=== PATIENT | female | born 1985 | race African-American/Black ===

== ENCOUNTER 2023-01-26 13:07 | Emergency (ER) | payer BC, MEDICAID ==
[~2023-01-26] VITALS: Ht 165.1 cm; Wt 82.0 kg
[2023-01-26 13:23] VITALS: BP 137/91; TEMP 98.5; O2SAT 100
[2023-01-26 14:32] LABS: BASOPHILS % 1.2 % (0.0-2.0); EOSINOPHILS % 0.5 % (0.0-5.0); HEMATOCRIT. 33.8 % (36.0-48.0); HEMOGLOBIN. 10.9 g/dL (12.0-16.0); LYMPHOCYTES % 23.2 % (20.0-50.0); MEAN CORPUSCULAR HEMOGLOBIN 26.5 pg (28.0-32.0); MEAN CORPUSCULAR HGB CONC 32.3 g/dL (31.0-37.0); MEAN CORPUSCULAR VOLUME 81.8 fL (81.0-99.0); MEAN PLATELET VOLUME 7.5 fl (7.4-10.4); MONOCYTES % 4.6 % (2.0-8.0); NEUTROPHILS % 70.5 % (40.0-76.0); PLATELET 300 x1000/uL (130-400); RED BLOOD CELL COUNT 4.13 mill/uL (4.2-5.4); RED CELL DISTRIBUTION WIDTH 21.2 % (11.6-14.6); WHITE BLOOD COUNT 14.1 x1000/uL (4.5-11.0)
[2023-01-26 14:35] LABS: CLARITY URINE CLEAR (CLEAR); COLOR URINE YELLOW (YELLOW); GLUCOSE URINE NEGATIVE (NEGATIVE); KETONES URINE NEGATIVE (NEGATIVE); LEUKOCYTE ESTERASE URINE TRACE (NEGATIVE); NITRITE URINE NEGATIVE (NEGATIVE); OCCULT BLOOD URINE NEGATIVE (NEGATIVE); PH URINE >=9.0 (4.5-8.0); PROTEIN URINE 1+ (NEGATIVE); SPECIFIC GRAVITY URINE 1.019 (1.005-1.030); UROBILINOGEN URINE 0.2 E.U./dL (0.2-1.0)
[2023-01-26 14:45] LABS: CHLORIDE 106 mEq/L (98-107); INDEX HEMOLYSI 1 (1-3); INDEX ICTERIC 1 (1-4); INDEX LIPEMIC 1 (1-3); SODIUM 139 mEq/L (136-145)
[2023-01-26 14:53] LABS: POTASSIUM 2.8 mEq/L (3.5-5.1)
[2023-01-26 14:55] LABS: ALANINE AMINOTRANSFERASE 32 IU/L (13-61); ALBUMIN 3.4 g/dL (3.4-5.0); ASPARTATE AMINOTRANSFERASE 50 IU/L (15-37); BILIRUBIN TOTAL 0.5 mg/dL (0.1-1.0); CALCIUM 8.4 mg/dL (8.5-10.1); CREATININE 0.6 mg/dL (0.6-1.3); GLUCOSE 110 mg/dL (70-105); PROTEIN TOTAL 7.7 g/dL (6.0-8.3); UREA NITROGEN BLOOD 8 mg/dL (7-21)
[2023-01-26 15:06] LABS: HCG SCREEN NEGATIVE
[2023-01-26] MEDS ORDERED: POTASSIUM CHLORIDE 20MEQ/PACKET PO ONE (15:15)
[2023-01-26 15:17] VITALS: PULSE 89; RESP 16
[2023-01-26 15:35] LABS: SQUAMOUS EPITHELIAL CELL URINE 2+ /lpf (RARE/1+)
[2023-01-26 15:37] LABS: RBC URINE 0-2 /hpf (0-2)
[2023-01-26 15:38] LABS: BACTERIA URINE 1+
[2023-01-26 16:21] LABS: CARBON DIOXIDE 23 mEq/L (21-32)
== END 2023-01-26 19:36 | disposition home or self-care (01) ==
LOC: ER 13:07
DX: R10.13 Epigastric pain (principal); R11.2 Nausea with vomiting, unspecified; E87.6 Hypokalemia; H40.9 Unspecified glaucoma; Z98.890 Other specified postprocedural states
CPT/HCPCS: 36415; 80053; 81003; 84703; 85025; 93005; 99284

== ENCOUNTER 2023-05-18 14:42 | Emergency (ER) | payer MEDICAID ==
[~2023-05-18] VITALS: Ht 160 cm; Wt 71.0 kg
[2023-05-18 15:07] VITALS: O2SAT 100
[2023-05-18 16:32] LABS: HEMATOCRIT. 35.1 % (36.0-48.0); HEMOGLOBIN. 11.8 g/dL (12.0-16.0); MEAN CORPUSCULAR HEMOGLOBIN 29.2 pg (28.0-32.0); MEAN CORPUSCULAR HGB CONC 33.5 g/dL (31.0-37.0); PLATELET 201 x1000/uL (130-400); RED BLOOD CELL COUNT 4.03 mill/uL (4.2-5.4); RED CELL DISTRIBUTION WIDTH 29.6 % (11.6-14.6); WHITE BLOOD COUNT 9.3 x1000/uL (4.5-11.0)
[2023-05-18 16:35] LABS: DIFFERENTIAL COMMENT 1
[2023-05-18 16:46] LABS: ALANINE AMINOTRANSFERASE 27 IU/L (10-49); ALBUMIN 3.7 g/dL (3.2-4.8); ASPARTATE AMINOTRANSFERASE 87 IU/L (<34); BILIRUBIN TOTAL 0.8 mg/dL (0.1-1.0); CALCIUM 8.2 mg/dL (8.7-10.4); CARBON DIOXIDE 30 mEq/L (21-32); CHLORIDE 100 mEq/L (98-107); CREATININE 0.6 mg/dL (0.6-1.0); GLUCOSE 110 mg/dL (70-105); INR 1.1; PROTEIN TOTAL 6.9 g/dL (6.0-8.3); SODIUM 141 mEq/L (136-145); UREA NITROGEN BLOOD 8 mg/dL (9-23)
[2023-05-18 16:49] LABS: POTASSIUM 2.6 mEq/L (3.5-5.1)
[2023-05-18 17:00] LABS: ANISOCYTOSIS 3+; PLATELET ESTIMATE NORMAL
[2023-05-18] MEDS: MAGNESIUM/ALUMINUM HYDROXIDE/SIMETHICONE 30ML UDC PO STA (18:21)
[2023-05-18] MEDS: POTASSIUM CHLORIDE 20MEQ TABLET SR PO ONE (18:22)
[2023-05-18] MEDS: MORPHINE SULFATE 10 MG/ML CPJ IM ONE (18:22)
[2023-05-18] MEDS: POTASSIUM CHLORIDE 20MEQ/PACKET PO ONE (18:51)
[2023-05-18] MEDS: KETOROLAC 60MG/2ML VIAL IM ONE (18:51)
[2023-05-18 20:03] VITALS: BP 116/76; PULSE 96; RESP 16; TEMP 98.7
== END 2023-05-18 20:05 | disposition home or self-care (01) ==
LOC: ER 14:42
DX: R10.13 Epigastric pain (principal); H40.9 Unspecified glaucoma; Z98.890 Other specified postprocedural states
CPT/HCPCS: 99285; 76705; 80053; 83690; 83735; 85025; 85610; 36415; 96372; J1885; J2270

== ENCOUNTER 2023-06-12 13:49 | Emergency (ER) | payer MEDICAID ==
[~2023-06-12] VITALS: Ht 167.6 cm; Wt 68.0 kg
[2023-06-12 13:58] VITALS: O2SAT 99
[2023-06-12] MEDS: PANTOPRAZOLE SODIUM 40 MG/VIAL IV STA (15:05)
[2023-06-12] MEDS: SODIUM CHLORIDE 0.9% 1,000 ML IV ONE (15:05)
[2023-06-12 15:12] LABS: BASOPHILS % 0.4 % (0.0-2.0); EOSINOPHILS % 0.2 % (0.0-5.0); HEMATOCRIT. 33.3 % (36.0-48.0); HEMOGLOBIN. 11.1 g/dL (12.0-16.0); LYMPHOCYTES % 8.1 % (20.0-50.0); MEAN CORPUSCULAR HGB CONC 33.4 g/dL (31.0-37.0); MEAN PLATELET VOLUME 7.8 fl (7.4-10.4); MONOCYTES % 2.8 % (2.0-8.0); NEUTROPHILS % 88.5 % (40.0-76.0); PLATELET 351 x1000/uL (130-400); RED BLOOD CELL COUNT 3.96 mill/uL (4.2-5.4); RED CELL DISTRIBUTION WIDTH 29.1 % (11.6-14.6); WHITE BLOOD COUNT 13.4 x1000/uL (4.5-11.0)
[2023-06-12 15:29] LABS: ADD RBC MORPHOLOGY YES; ALANINE AMINOTRANSFERASE 23 IU/L (10-49); ALBUMIN 3.8 g/dL (3.2-4.8); ASPARTATE AMINOTRANSFERASE 49 IU/L (<34); BILIRUBIN TOTAL 0.6 mg/dL (0.1-1.0); CALCIUM 8.1 mg/dL (8.7-10.4); CARBON DIOXIDE 23 mEq/L (21-32); CHLORIDE 108 mEq/L (98-107); CREATININE 0.7 mg/dL (0.6-1.0); DIFFERENTIAL COMMENT 1; ETHANOL BLOOD < 10 mg/dL (<10); GLUCOSE 104 mg/dL (70-105); PROTEIN TOTAL 6.5 g/dL (6.0-8.3); SODIUM 141 mEq/L (136-145); UREA NITROGEN BLOOD 7 mg/dL (9-23)
[2023-06-12] MEDS: DIAZEPAM 2 MG TABLET PO ONE (15:30)
[2023-06-12 15:32] LABS: HCG SCREEN NEGATIVE
[2023-06-12 16:04] LABS: ANISOCYTOSIS 3+; PLATELET ESTIMATE NORMAL
[2023-06-12] MEDS: ACETAMINOPHEN 325MG TABLET PO ONE (16:22)
[2023-06-12] MEDS: KETOROLAC 15MG/ML VIAL IV ONE (16:22)
[2023-06-12] MEDS: MAGNESIUM/ALUMINUM HYDROXIDE/SIMETHICONE 30ML UDC PO ONE (16:22)
[2023-06-12] MEDS ORDERED: DIAZEPAM 5 MG/ML 2ML CPJ IV ONE (16:45)
[2023-06-12 19:50] LABS: CLARITY URINE CLOUDY (CLEAR); COLOR URINE DARK YELLOW (YELLOW); GLUCOSE URINE NEGATIVE (NEGATIVE); KETONES URINE 1+ (NEGATIVE); LEUKOCYTE ESTERASE URINE TRACE (NEGATIVE); NITRITE URINE NEGATIVE (NEGATIVE); OCCULT BLOOD URINE NEGATIVE (NEGATIVE); PH URINE 5.5 (4.5-8.0); PROTEIN URINE TRACE (NEGATIVE); SPECIFIC GRAVITY URINE 1.036 (1.005-1.030)
[2023-06-12 20:03] LABS: *AMPHETAMINES SCREEN URINE NEGATIVE (NEGATIVE); *BARBITURATES SCREEN URINE NEGATIVE (NEGATIVE); *BENZODIAZEPINES SCREEN URINE PRESUMPTIVE POSITIVE (NEGATIVE); *COCAINE SCREEN URINE NEGATIVE (NEGATIVE); CANNABINOID URINE SCREEN PRESUMPTIVE POSITIVE (NEGATIVE); ECSTASY MDMA SCREEN URINE NEGATIVE (NEGATIVE); METHADONE URINE SCREEN Neg (NEGATIVE); OPIATES URINE SCREEN NEGATIVE (NEGATIVE); PHENCYCLIDINE URINE SCREEN NEGATIVE (NEGATIVE)
[2023-06-12 20:05] LABS: BACTERIA URINE 1+; RBC URINE 0-2 /hpf (0-2); SQUAMOUS EPITHELIAL CELL URINE 2+ /lpf (RARE/1+)
[2023-06-12] MEDS ORDERED: OMEP20TA23 MT (20:06)
[2023-06-12 20:36] VITALS: BP 127/75; PULSE 92; RESP 17; TEMP 98.1
== END 2023-06-12 20:20 | disposition home or self-care (01) ==
LOC: ER 13:49
DX: K29.70 Gastritis, unspecified, without bleeding (principal); F41.9 Anxiety disorder, unspecified; F10.10 Alcohol abuse, uncomplicated; F12.10 Cannabis abuse, uncomplicated; H40.9 Unspecified glaucoma; Z98.890 Other specified postprocedural states; Z87.891 Personal history of nicotine dependence
CPT/HCPCS: 80053; 80305; 81003; 80320; 84703; 83690; 85025; 85610; 36415; 71045; 93005; 96361; 96374; 96375; 99285; J1885; C9113; J7030; Z7610 ×2; G0480

== ENCOUNTER 2023-07-13 08:29 | Emergency (ER) | payer MEDICAID ==
[~2023-07-13] VITALS: Ht 170.2 cm; Wt 73.0 kg
[~2023-07-13 08:29] MED LIST: OMEP20TA23 MT
[2023-07-13 08:32] VITALS: O2SAT 100
[2023-07-13] MEDS: KETOROLAC 30MG/ML VIAL IV STA (08:51)
[2023-07-13 09:01] LABS: HCG SCREEN NEGATIVE
[2023-07-13 09:08] LABS: ALANINE AMINOTRANSFERASE 14 IU/L (10-49); ALBUMIN 3.9 g/dL (3.2-4.8); ASPARTATE AMINOTRANSFERASE 41 IU/L (<34); BILIRUBIN TOTAL 0.6 mg/dL (0.1-1.0); CALCIUM 8.4 mg/dL (8.7-10.4); CARBON DIOXIDE 28 mEq/L (21-32); CHLORIDE 100 mEq/L (98-107); CREATININE 0.6 mg/dL (0.6-1.0); GLUCOSE 108 mg/dL (70-105); POTASSIUM 2.9 mEq/L (3.5-5.1); PROTEIN TOTAL 7.1 g/dL (6.0-8.3); SODIUM 137 mEq/L (136-145)
[2023-07-13 09:10] LABS: UREA NITROGEN BLOOD < 5 mg/dL (9-23)
[2023-07-13 09:28] LABS: BASOPHILS % 0.7 % (0.0-2.0); EOSINOPHILS % 1.6 % (0.0-5.0); HEMATOCRIT. 35.4 % (36.0-48.0); HEMOGLOBIN. 11.7 g/dL (12.0-16.0); LYMPHOCYTES % 19.1 % (20.0-50.0); MEAN CORPUSCULAR HEMOGLOBIN 27.7 pg (28.0-32.0); MEAN CORPUSCULAR VOLUME 83.8 fL (81.0-99.0); MEAN PLATELET VOLUME 8.3 fl (7.4-10.4); MONOCYTES % 5.4 % (2.0-8.0); NEUTROPHILS % 73.2 % (40.0-76.0); PLATELET 240 x1000/uL (130-400); RED BLOOD CELL COUNT 4.22 mill/uL (4.2-5.4); WHITE BLOOD COUNT 7.2 x1000/uL (4.5-11.0)
[2023-07-13 09:29] LABS: PROTHROMBIN TIME 10.9 sec (9.6-11.0)
[2023-07-13 09:44] LABS: ADD RBC MORPHOLOGY YES; DIFFERENTIAL COMMENT 1
[2023-07-13] MEDS: MAGNESIUM/ALUMINUM HYDROXIDE/SIMETHICONE 30ML UDC PO STA (10:47)
[2023-07-13] MEDS: POTASSIUM CHLORIDE 20MEQ/PACKET PO ONE (10:47)
[2023-07-13 11:14] VITALS: BP 111/70; PULSE 67; RESP 16; TEMP 98.6
[2023-07-13] MEDS ORDERED: TOPUD PO (11:16)
[2023-07-13 15:59] LABS: ANISOCYTOSIS 2+; PLATELET ESTIMATE NORMAL
== END 2023-07-13 11:30 | disposition home or self-care (01) ==
LOC: ER 08:29
DX: R10.13 Epigastric pain (principal); Z98.890 Other specified postprocedural states; Z87.19 Personal history of other diseases of the digestive system
CPT/HCPCS: 99283; 80053; 84703; 83690; 85025; 85610; 36415; J1885

== ENCOUNTER 2023-08-14 05:10 | Emergency (ER) | payer MEDICAID ==
[~2023-08-14] VITALS: Ht 172.7 cm; Wt 84.0 kg
[~2023-08-14 05:10] MED LIST changes: +TOPUD PO
[2023-08-14 05:12] VITALS: O2SAT 98
[2023-08-14 05:51] LABS: BASOPHILS % 0.5 % (0.0-2.0); EOSINOPHILS % 1.2 % (0.0-5.0); HEMATOCRIT. 34.5 % (36.0-48.0); HEMOGLOBIN. 11.8 g/dL (12.0-16.0); LYMPHOCYTES % 29.5 % (20.0-50.0); MEAN CORPUSCULAR HEMOGLOBIN 28.5 pg (28.0-32.0); MEAN CORPUSCULAR HGB CONC 34.1 g/dL (31.0-37.0); MEAN CORPUSCULAR VOLUME 83.5 fL (81.0-99.0); MEAN PLATELET VOLUME 8.1 fl (7.4-10.4); MONOCYTES % 7.7 % (2.0-8.0); NEUTROPHILS % 61.1 % (40.0-76.0); PLATELET 205 x1000/uL (130-400); RED BLOOD CELL COUNT 4.13 mill/uL (4.2-5.4); RED CELL DISTRIBUTION WIDTH 26.7 % (11.6-14.6); WHITE BLOOD COUNT 6.7 x1000/uL (4.5-11.0)
[2023-08-14] MEDS: KETOROLAC 30MG/ML VIAL IV STA (05:59)
[2023-08-14 06:00] LABS: PROTHROMBIN TIME 11.1 sec (9.6-11.0)
[2023-08-14] MEDS: ONDANSETRON HCL 4MG/2ML INJ IV STA (06:00)
[2023-08-14] MEDS: DICYCLOMINE 10 MG/5 ML ORAL SYR PO STA (06:00)
[2023-08-14] MEDS: MAGNESIUM/ALUMINUM HYDROXIDE/SIMETHICONE 30ML UDC PO STA (06:00)
[2023-08-14 06:07] LABS: DIFFERENTIAL COMMENT 1
[2023-08-14 06:13] LABS: CHLORIDE 103 mEq/L (98-107); SODIUM 140 mEq/L (136-145)
[2023-08-14 06:14] LABS: CARBON DIOXIDE 26 mEq/L (21-32)
[2023-08-14 06:19] LABS: CREATININE 0.5 mg/dL (0.6-1.0); GLUCOSE 119 mg/dL (70-105)
[2023-08-14 06:47] LABS: UREA NITROGEN BLOOD < 5 mg/dL (9-23)
[2023-08-14 06:48] LABS: POTASSIUM 2.7 mEq/L (3.5-5.1)
[2023-08-14 07:06] LABS: HCG SCREEN NEGATIVE
[2023-08-14] MEDS: POTASSIUM CHLORIDE 20MEQ/PACKET PO ONE (07:08)
[2023-08-14] MEDS ORDERED: ONDA4TAB50 PO (08:53)
[2023-08-14 09:05] VITALS: BP 116/82; PULSE 108; RESP 14; TEMP 98.3
== END 2023-08-14 09:06 | disposition home or self-care (01) ==
LOC: ER 05:18
DX: K76.0 Fatty (change of) liver, not elsewhere classified (principal); E87.6 Hypokalemia; H40.9 Unspecified glaucoma; Z98.890 Other specified postprocedural states
CPT/HCPCS: 99285; 96374; 76705; 96375; 80048; 84703; 83690; 85025; 85610; 36415; J1885; J2405